=== PATIENT | female | born 1990 | race Two or more races ===

== ENCOUNTER 2022-03-30 21:00 | Observation (INO) | payer OTHER ==
[~2022-03-30] VITALS: Ht 152.4 cm; Wt 86.2 kg
[2022-03-30 22:47] LABS: Basophils # (auto) 0.1 10 ^3/uL (0-0.2); Basophils % (auto) 0.7 % (0.0-2.0); Eosinophils # (auto) 0.1 10 ^3/uL (0-0.8); Eosinophils % (auto) 1.8 % (0.0-7.0); Hematocrit 33.1 % (36.0-46.0); Hemoglobin 10.8 g/dL (12.2-16.2); Lymphocytes # (auto) 1.4 10 ^3/uL (0.4-5.4); Lymphocytes % (auto) 20.1 % (10.0-50.0); Mean Corpuscular Hemoglobin 28.9 pg (28.0-32.0); Mean Corpuscular Hgb Conc. 32.5 g/dL (32.0-36.0); Mean Corpuscular Volume 88.8 fL (80.0-100.0); Monocytes # (auto) 0.4 10 ^3/uL (0-1.3); Monocytes % (auto) 6.3 % (0.0-12.0); Neutrophils # (auto) 4.9 10 ^3/uL (1.6-8.6); Neutrophils % (auto) 71.1 % (37.0-80.0); Nucleated Red Blood Cells % 0.2 %; Red Blood Cells 3.73 10^6/uL (4.0-5.20); Red Cell Distribution Width 16.5 % (11.8-14.3); White Blood Cell 6.8 10^3/uL (4.4-10.8)
[2022-03-30 22:48] LABS: Urine Bacteria NONE SEEN /hpf (None Seen); Urine Blood Negative /uL (Negative); Urine Specific Gravity 1.016 (1.001-1.035); Urine WBC 14 /hpf (0 - 5)
[2022-03-30 23:03] LABS: INR 0.92 (0.9-1.15); Partial Thromboplastin Time 28.9 sec (24.6-33.4)
[2022-03-30 23:06] LABS: Albumin 2.5 g/dL (3.4-5.0); BUN/Creatinine Ratio 14.3; Potassium 3.5 mmol/L (3.5-5.1)
[2022-03-30 23:09] LABS: Bilirubin, Total 0.3 mg/dL (0.2-1.0); Total Protein 6.4 g/dL (6.4-8.2)
[2022-03-31 00:08] LABS: Alcohol, Urine < 3.0 mg/dL (0-10); Amphetamine Screen, Urine NEGATIVE (NEGATIVE); Barbiturate Scree,Urine NEGATIVE (NEGATIVE); Benzodiazephine Screen, Urine NEGATIVE (NEGATIVE); Cannabinoid Screen, Urine NEGATIVE (NEGATIVE); Cocaine Screen, Urine NEGATIVE (NEGATIVE); Opiate Scree,Urine NEGATIVE (NEGATIVE); Phencyclidine Screen, Urine NEGATIVE (NEGATIVE)
[2022-04-01 05:06] LABS: Rubella Antibodies, IgG <0.90 index (Immune >0.99)
[2022-04-01 07:06] LABS: RPR Non Reactive (Non Reactive)
== END 2022-03-31 00:44 | disposition home or self-care (01) ==
LOC: LDRP 21:00
PROVIDERS: ADMIT Obstetrics & Gynecology; ATTEND Obstetrics & Gynecology
DX: O98.513 Other viral diseases complicating pregnancy, third trimester (principal); U07.1 COVID-19; O26.893 Other specified pregnancy related conditions, third trimester; R51.9 Headache, unspecified; Z3A.36 36 weeks gestation of pregnancy; Z79.899 Other long term (current) drug therapy
CPT/HCPCS: 36415; 59025; 76805; 76818; 80053; 80307; 81001; 85025; 85610; 85730; 86592; 86703; 86762; 86850; 86900; 86901; 87081; 87340; 87426; 87491; 87591; 94760; G0378

== ENCOUNTER 2022-10-01 13:24 | Emergency (ER) | payer MEDICAID ==
[~2022-10-01] VITALS: Ht 152.4 cm; Wt 80.7 kg
[2022-10-01 13:46] VITALS: BP 132/81
[2022-10-01 14:16] LABS: Eosinophils # (auto) 0.1 10 ^3/uL (0-0.8); Hemoglobin 12.1 g/dL (12.2-16.2); Lymphocytes # (auto) 1.2 10 ^3/uL (0.4-5.4); Monocytes # (auto) 0.5 10 ^3/uL (0-1.3); Red Cell Distribution Width 18.6 % (11.8-14.3)
[2022-10-01 14:17] LABS: Basophils # (auto) 0.1 10 ^3/uL (0-0.2); Basophils % (auto) 0.5 % (0.0-2.0); Eosinophils % (auto) 0.6 % (0.0-7.0); Hematocrit 38.3 % (36.0-46.0); Lymphocytes % (auto) 10.6 % (10.0-50.0); Mean Corpuscular Hgb Conc. 31.7 g/dL (32.0-36.0); Monocytes % (auto) 4.4 % (0.0-12.0); Neutrophils # (auto) 9.7 10 ^3/uL (1.6-8.6); Neutrophils % (auto) 83.9 % (37.0-80.0); Nucleated Red Blood Cells % 0.1 %; Red Blood Cells 4.67 10^6/uL (4.0-5.20); White Blood Cell 11.6 10^3/uL (4.4-10.8)
[2022-10-01 14:32] LABS: Albumin 3.6 g/dL (3.4-5.0); BUN/Creatinine Ratio 10.7; Calcium 9.1 mg/dL (8.5-10.1); Potassium 3.9 mmol/L (3.5-5.1)
[2022-10-01 14:35] LABS: Bilirubin, Total 0.4 mg/dL (0.2-1.0); Total Protein 7.2 g/dL (6.4-8.2)
[2022-10-01] MEDS ORDERED: PANT40TA2 PO (19:19)
== END 2022-10-01 21:38 | disposition left against medical advice (07) ==
LOC: ER 13:24
DX: K29.70 Gastritis, unspecified, without bleeding (principal); R10.84 Generalized abdominal pain; Z79.899 Other long term (current) drug therapy; Z88.1 Allergy status to other antibiotic agents
CPT/HCPCS: 36415; 80053; 84702; 85025

== ENCOUNTER 2024-01-03 20:53 | Inpatient (IN) | payer MEDICAID ==
[~2024-01-03] VITALS: Ht 157.5 cm; Wt 86.2 kg
[~2024-01-03 20:53] MED LIST: PANT40TA2 PO
[2024-01-03 22:34] LABS: Urine Bacteria None Seen /hpf (None Seen); Urine WBC None Seen /hpf (0 - 5)
[2024-01-03 22:46] LABS: Urine Blood Negative /uL (Negative); Urine Clarity Turbid (Clear); Urine Color Light-Yellow (Yellow); Urine Protein, UAD 1+ (Negative); Urine Specific Gravity 1.014 (1.001-1.035); Urine Urobilinogen Normal (Negative); Urine pH 6.5 (5.0-9.0)
[2024-01-03 22:47] LABS: Basophils # (auto) 0 10 ^3/uL (0-0.2); Basophils % (auto) 0.4 % (0.0-2.0); Eosinophils # (auto) 0 10 ^3/uL (0-0.8); Eosinophils % (auto) 0.5 % (0.0-7.0); Hematocrit 30.9 % (36.0-46.0); Hemoglobin 9.5 g/dL (12.2-16.2); Lymphocytes # (auto) 1.7 10 ^3/uL (0.4-5.4); Lymphocytes % (auto) 26.9 % (10.0-50.0); Mean Corpuscular Hemoglobin 23.7 pg (28.0-32.0); Mean Corpuscular Hgb Conc. 30.7 g/dL (32.0-36.0); Mean Corpuscular Volume 77.1 fL (80.0-100.0); Monocytes # (auto) 0.4 10 ^3/uL (0-1.3); Monocytes % (auto) 6.2 % (0.0-12.0); Neutrophils # (auto) 4.1 10 ^3/uL (1.6-8.6); Nucleated Red Blood Cells % 1.2 %; Red Blood Cells 4.01 10^6/uL (4.0-5.20); White Blood Cell 6.3 10^3/uL (4.4-10.8)
[2024-01-03 22:48] LABS: Red Cell Distribution Width 21.3 % (11.8-14.3)
[2024-01-03 23:05] LABS: Alanine Aminotransferase 11 U/L (7-40); Albumin 3.4 g/dL (3.2-4.8); Alkaline Phosphatase 235 U/L (46-116); Anion Gap 8 (5-15); Aspartate Aminotransferase 31 U/L (13-40); BUN/Creatinine Ratio 11.9 (10.0-20.0); Bilirubin, Total 0.4 mg/dL (0.2-1.0); Blood Urea Nitrogen 8 mg/dL (9-23); Carbon Dioxide 22 mmol/L (20-30); Chloride 108 mmol/L (98-107); Glucose 101 mg/dL (74-106); Potassium 3.9 mmol/L (3.5-5.1); Sodium 138 mmol/L (136-145)
[2024-01-03 23:10] LABS: INR 0.92 (0.9-1.15); Partial Thromboplastin Time 28.5 SEC (24.5-34.5); Prothrombin Time 9.8 sec (9.3-11.8)
[2024-01-03 23:18] LABS: Protein, Urine 47.8 mg/dL (0.0-11.9)
[2024-01-03 23:21] LABS: Creatinine, Urine 52.25 mg/dL (30.0-125.0); Urine Protein/Creatinine Ratio 0.91
[2024-01-03 23:22] LABS: Amphetamine Screen, Urine Neg (NEGATIVE)
[2024-01-03 23:23] LABS: Barbiturate Scree,Urine Neg (NEGATIVE); Benzodiazephine Screen, Urine Neg (NEGATIVE); Cocaine Screen, Urine Neg (NEGATIVE); Opiate Scree,Urine Neg (NEGATIVE); Phencyclidine Screen, Urine Neg (NEGATIVE)
[2024-01-03 23:57] LABS: Cannabinoid Screen, Urine Neg (NEGATIVE)
[2024-01-04] VITALS (14 sets, daily range): BP systolic 115–156; BP diastolic 72–93; PULSE 63–102; RESP 8–20; TEMP 98.2–98.3; O2SAT 97–100
[2024-01-04] MEDS ORDERED: LIDOCAINE 2%HCL (LOCAL ANESTH.) INJ 20ML MDV IJ PRN
[2024-01-04] MEDS: LABETALOL HCL 200 MG TAB ONE (00:35)
[2024-01-04] MEDS: miSOPROStol 50 MCG per PRE-CUT 1/2 TAB PO PRN (04:12)
[2024-01-04] MEDS: PENICILLIN G POT 5MIL/D5 50ML 50 ML IV ONE (04:50)
[2024-01-04] MEDS: DERMOPLAST 60ML BOTTLE TOP PRN (05:43)
[2024-01-04] MEDS: WITCH HAZEL-GLYCERIN PAD TOP PRN (05:43)
[2024-01-04] MEDS: PHISODERM TOP SOLN 240ML BTL TOP PRN (05:44)
[2024-01-04] MEDS: LACTATED RINGER'S 1,000 ML IV SCH (05:50)
[2024-01-04] MEDS: ROPIVACAINE HCL 200 ML ONE (06:00)
[2024-01-04] MEDS: ePHEDrine SULFATE 50 MG/ML AMP IV PRN (06:26)
[2024-01-04] MEDS: PHENYLEPHRINE HCL 10 MG/ML VL IV PRN (06:47)
[2024-01-04] MEDS: ceFAZolin 1GM/50ML 100 ML IV ONE (07:24)
[2024-01-04] MEDS ORDERED: fentaNYL CITRATE 100 MCG/2 ML VL ONE (07:27)
[2024-01-04] MEDS ORDERED: MORPHINE SULF PF 5 MG/10 ML VIAL ONE (07:32)
[2024-01-04] MEDS ORDERED: PHENYLEPHRINE HCL 10 MG/ML VL ONE (07:33)
[2024-01-04] MEDS ORDERED: oxyTOCIN 10 UNIT/ML 10ML VIAL ONE (07:33)
[2024-01-04] MEDS ORDERED: SODIUM CHLORIDE LOCK 10 ML ONE (07:33)
[2024-01-04] MEDS ORDERED: KETOROLAC TROMETH 30 MG/ML 1ML VIAL ONE (07:33)
[2024-01-04] MEDS ORDERED: DexAMETHasone SOD PHOS 10MG/1ML VIAL INJ ONE (07:33)
[2024-01-04] MEDS ORDERED: ONDANSETRON HCL 4 MG/2 ML VIAL ONE (07:33)
[2024-01-04] MEDS ORDERED: SODIUM BICARB 8.4% 50Meq/50ml SYR Vial IV ONE (07:46)
[2024-01-04] MEDS ORDERED: PROPOFOL 10 MG/ML 20 ML IV ONE (07:48)
[2024-01-04] MEDS ORDERED: PENICILLIN G POTASSIUM 2,500,000 UNITS in D5W 5% 50 ML IV SCH (08:00)
[2024-01-04] MEDS ORDERED: LACT. RINGERS/OXYTOCIN 20UNITS 500 ML IV ONE (08:00)
[2024-01-04] MEDS ORDERED: LACT. RINGERS/OXYTOCIN 20UNITS 1,000 ML IV SCH ×2 (08:30→09:30)
[2024-01-04] MEDS ORDERED: FLUMAZENIL 0.1 MG/ML INJ 10ML MDV IV PRN (08:45)
[2024-01-04] MEDS ORDERED: NALOXONE HCL 0.4 MG/ML VIAL IV PRN (08:45)
[2024-01-04] MEDS ORDERED: LABETALOL HCL 5 MG/ML 4ML SYRINGE IV PRN (08:45)
[2024-01-04] MEDS ORDERED: ONDANSETRON HCL 4 MG/2 ML VIAL IV PRN (08:45)
[2024-01-04] MEDS ORDERED: hydrALAZINE HCL 20 MG/ML VL IV PRN ×2 (08:45)
[2024-01-04] MEDS ORDERED: HYDROmorphone HCL 2 MG/ML VL/or syr IV PRN (08:45)
[2024-01-04] MEDS ORDERED: fentaNYL CITRATE 100 MCG/2 ML VL IV PRN (08:45)
[2024-01-04] MEDS ORDERED: ePHEDrine SULFATE 50 MG/ML AMP ONE (08:56)
[2024-01-04] MEDS ORDERED: MORPHINE SULFATE 4 MG/ML SYR/VIAL IV PRN (09:30)
[2024-01-04] MEDS ORDERED: ceFAZolin 1GM/50ML 50 ML IV SCH (09:30)
[2024-01-04 09:50] LABS: Basophils # (auto) 0 10 ^3/uL (0-0.2); Eosinophils # (auto) 0 10 ^3/uL (0-0.8); Eosinophils % (auto) 0.1 % (0.0-7.0); Hematocrit 21.6 % (36.0-46.0); Mean Corpuscular Hemoglobin 23.7 pg (28.0-32.0); Monocytes # (auto) 0.3 10 ^3/uL (0-1.3); Neutrophils # (auto) 11.9 10 ^3/uL (1.6-8.6); Neutrophils % (auto) 89.9 % (37.0-80.0); Nucleated Red Blood Cells % 0.2 %; Red Blood Cells 2.77 10^6/uL (4.0-5.20)
[2024-01-04 09:55] LABS: Basophils % (auto) 0.3 % (0.0-2.0); Lymphocytes % (auto) 7.8 % (10.0-50.0); Mean Corpuscular Hgb Conc. 30.4 g/dL (32.0-36.0); Monocytes % (auto) 1.9 % (0.0-12.0); White Blood Cell 13.3 10^3/uL (4.4-10.8)
[2024-01-04 09:57] LABS: Red Cell Distribution Width 21.7 % (11.8-14.3)
[2024-01-04 09:59] LABS: Hemoglobin 6.6 g/dL (12.2-16.2)
[2024-01-04 11:24] LABS: Anisocytosis Slight; Hypochromia Slight; Platelet Estimate Decreased; Polychromasia Slight
[2024-01-04] MEDS ORDERED: diphenhdrAMINE HCL 50 MG/1 ML VL IV PRN (12:00)
[2024-01-04] MEDS: ONDANSETRON HCL 4 MG/2 ML VIAL IV PRN (12:41)
[2024-01-04] MEDS: ACETAMINOPHEN IV 1000 MG/100ML (10MG/ML) IV PRN (12:41)
[2024-01-04 13:16] LABS: Uric Acid 4.6 mg/dL (3.1-7.8)
[2024-01-04] MEDS: ceFAZolin 1GM/50ML 50 ML IV SCH (15:21)
[2024-01-04 18:21] LABS: Basophils # (auto) 0 10 ^3/uL (0-0.2); Eosinophils # (auto) 0 10 ^3/uL (0-0.8); Lymphocytes # (auto) 0.9 10 ^3/uL (0.4-5.4); Mean Corpuscular Hemoglobin 23.6 pg (28.0-32.0); Monocytes # (auto) 0.2 10 ^3/uL (0-1.3); Nucleated Red Blood Cells % 0.1 %
[2024-01-04 18:23] LABS: Basophils % (auto) 0.1 % (0.0-2.0); Hematocrit 31.2 % (36.0-46.0); Hemoglobin 9.4 g/dL (12.2-16.2); Lymphocytes % (auto) 5.7 % (10.0-50.0); Mean Corpuscular Hgb Conc. 30.1 g/dL (32.0-36.0); Mean Corpuscular Volume 78.2 fL (80.0-100.0); Monocytes % (auto) 1.6 % (0.0-12.0); Neutrophils # (auto) 14.2 10 ^3/uL (1.6-8.6); Neutrophils % (auto) 92.6 % (37.0-80.0); Red Blood Cells 3.99 10^6/uL (4.0-5.20); White Blood Cell 15.4 10^3/uL (4.4-10.8)
[2024-01-04 18:32] LABS: Red Cell Distribution Width 20.3 % (11.8-14.3)
[2024-01-04] MEDS: LABETALOL HCL 200 MG TAB PO SCH (22:19)
[2024-01-05] VITALS (11 sets, daily range): BP systolic 117–154; BP diastolic 58–86; PULSE 73–91; RESP 16–20; TEMP 98.2–98.7; O2SAT 97–100
[2024-01-05] MEDS: ePHEDrine SULFATE 50 MG/ML AMP IV ONE (06:00)
[2024-01-05] MEDS: LACTATED RINGER'S 500 ML IV ONE (06:00)
[2024-01-05] MEDS: ePHEDrine SULFATE 50 MG/ML AMP ONE (06:25)
[2024-01-05 07:10] LABS: Basophils # (auto) 0 10 ^3/uL (0-0.2); Eosinophils # (auto) 0 10 ^3/uL (0-0.8); Monocytes # (auto) 0.6 10 ^3/uL (0-1.3); Nucleated Red Blood Cells % 0.2 %
[2024-01-05 07:13] LABS: Basophils % (auto) 0.2 % (0.0-2.0); Hematocrit 24.6 % (36.0-46.0); Lymphocytes # (auto) 1.4 10 ^3/uL (0.4-5.4); Lymphocytes % (auto) 12.5 % (10.0-50.0); Mean Corpuscular Hemoglobin 24.2 pg (28.0-32.0); Mean Corpuscular Hgb Conc. 31.1 g/dL (32.0-36.0); Mean Corpuscular Volume 77.6 fL (80.0-100.0); Monocytes % (auto) 5.2 % (0.0-12.0); Neutrophils # (auto) 9.3 10 ^3/uL (1.6-8.6); Neutrophils % (auto) 82.1 % (37.0-80.0); Red Blood Cells 3.17 10^6/uL (4.0-5.20); White Blood Cell 11.3 10^3/uL (4.4-10.8)
[2024-01-05 07:17] LABS: Red Cell Distribution Width 20.1 % (11.8-14.3)
[2024-01-05 07:18] LABS: Hemoglobin 7.7 g/dL (12.2-16.2)
[2024-01-05] MEDS: IRON SUCROSE COMPLEX 100 ML IV SCH (10:10)
[2024-01-05] MEDS: FUROSEMIDE 20 MG/2 ML VIAL IV ONE (10:30)
[2024-01-05] MEDS: POTASSIUM CHL 20 Meq TABLET PO ONE (10:30)
[2024-01-05] MEDS ORDERED: BISACODYL 10 MG RECT SUPP PR PRN (11:45)
[2024-01-05] MEDS: IBUPROFEN 800 MG TAB PO PRN (11:46)
[2024-01-05] MEDS: SIMETHICONE 80 MG CHEWABLE TABLET PO SCH (12:00)
[2024-01-05] MEDS: HYDROcodone-ACET 5/325MG TAB PO PRN (15:20)
[2024-01-05] MEDS: DOCUSATE SOD 100 MG CAP PO SCH (22:00)
[2024-01-05] MEDS ORDERED: PREN-96 PO (22:56)
[2024-01-05] MEDS ORDERED: ASCO500T11 PO (22:56)
[2024-01-05] MEDS ORDERED: FER325T PO (22:56)
[2024-01-05] MEDS ORDERED: HYDR-4902 PO (22:56)
[2024-01-05] MEDS ORDERED: DOCU-265 PO (22:56)
[2024-01-05] MEDS ORDERED: IBUP-1455 PO (22:56)
[2024-01-06 03:00] VITALS: BP 116/75; PULSE 83; RESP 16; TEMP 98.4; O2SAT 98
[2024-01-06 04:06] LABS: RPR Non Reactive (Non Reactive)
[2024-01-06 07:00] VITALS: BP 121/71; PULSE 84; RESP 16; TEMP 97.9; O2SAT 99
[2024-01-06 07:43] LABS: Basophils # (auto) 0 10 ^3/uL (0-0.2); Eosinophils # (auto) 0 10 ^3/uL (0-0.8); Hemoglobin 8.4 g/dL (12.2-16.2); Lymphocytes # (auto) 1.6 10 ^3/uL (0.4-5.4); Monocytes # (auto) 0.6 10 ^3/uL (0-1.3)
[2024-01-06 07:45] LABS: Basophils % (auto) 0.1 % (0.0-2.0); Eosinophils % (auto) 0.3 % (0.0-7.0); Lymphocytes % (auto) 15.3 % (10.0-50.0); Mean Corpuscular Hemoglobin 24.1 pg (28.0-32.0); Mean Corpuscular Hgb Conc. 31.1 g/dL (32.0-36.0); Mean Corpuscular Volume 77.7 fL (80.0-100.0); Monocytes % (auto) 5.7 % (0.0-12.0); Neutrophils # (auto) 8.3 10 ^3/uL (1.6-8.6); Neutrophils % (auto) 78.6 % (37.0-80.0); Nucleated Red Blood Cells % 0.7 %; Red Blood Cells 3.48 10^6/uL (4.0-5.20); Red Cell Distribution Width 20.3 % (11.8-14.3); White Blood Cell 10.5 10^3/uL (4.4-10.8)
[2024-01-06 08:06] LABS: Rubella Antibodies, IgG <0.90 index (Immune >0.99)
[2024-01-06 10:57] VITALS: BP 139/89; PULSE 97; RESP 15; TEMP 98.4; O2SAT 99
[2024-01-06] MEDS: DOCUSATE CALCIUM 240 MG CAP PO SCH (12:52)
[2024-01-06 15:00] VITALS: BP 141/99; PULSE 87; RESP 16; TEMP 98.2; O2SAT 97
[2024-01-06] MEDS ORDERED: LABE100T7 PO (16:04)
[2024-01-06] MEDS: LABETALOL HCL 200 MG TAB PO ONE (16:13)
[2024-01-06 19:00] VITALS: BP 138/80; PULSE 80; RESP 18; TEMP 98.6; O2SAT 98
[2024-01-06 23:15] VITALS: BP 139/90; PULSE 88; RESP 18; TEMP 98.5; O2SAT 99
[2024-01-06] MEDS: HYDROcodone-ACET 10/325MG TAB PO PRN (23:22)
[2024-01-07 03:15] VITALS: BP 150/99; PULSE 79; RESP 20; TEMP 97.9; O2SAT 99
[2024-01-07] MEDS: LABETALOL HCL 200 MG TAB PO SCH (03:34)
[2024-01-07 04:14] VITALS: BP 117/73; PULSE 72; RESP 18; O2SAT 99
[2024-01-07 07:00] VITALS: BP 130/88; PULSE 77; RESP 18; TEMP 97.8; O2SAT 100
[2024-01-07] MEDS: MEASLES, MUMPS & RUBELLA VAC(MMRII) 0.5ML SC ONE (07:05)
[2024-01-07 18:06] LABS: Treponema pallidum Ab (FTA-Ab) Non Reactive (Non Reactive)
== END 2024-01-07 07:30 | disposition home or self-care (01) | DRG 540 ==
LOC: LDRP 20:53 → UNDOADMOB 20:53 → LDRP 23:26 → OBSVTOIN 23:40 → INTOOBSV 23:40 → OBSVTOIN 23:59 → LDRP 23:59
PROVIDERS: ADMIT Obstetrics & Gynecology; ATTEND Obstetrics & Gynecology
PROC: 30233N1 Transfusion of Nonautologous Red Blood Cells into Peripheral Vein, Percutaneous Approach (ICD-10-PCS; 2024-01-04)
PROC: 10D00Z1 Extraction of Products of Conception, Low, Open Approach (ICD-10-PCS; principal; 2024-01-04 07:27)
DX: O14.94 Unspecified pre-eclampsia, complicating childbirth (principal); O26.53 Maternal hypotension syndrome, third trimester; D62 Acute posthemorrhagic anemia; O76 Abnormality in fetal heart rate and rhythm complicating labor and delivery; O90.81 Anemia of the puerperium; Z3A.40 40 weeks gestation of pregnancy; Z37.0 Single live birth; Z85.6 Personal history of leukemia; Z88.1 Allergy status to other antibiotic agents
CPT/HCPCS: 36415; 59025; 62282; 71045; 76805; 76818; 80053; 80307; 81001; 81002; 82570; 84156; 84550; 85025; 85384; 85610; 85730; 86592; 86703; 86762; 86850; 86900; 86901; 86920; 87086; 87340; 94760; 94762; 96361; 96366; 96374; 96375; G0378; J0131; J1100; J1756; J1885; J2405; J2540; J2590; J2704; J7060